=== PATIENT | female | born 1965 | race American Indian/Alaskan Native ===

== ENCOUNTER 2020-09-07 16:19 | Observation (INO) | payer OTHER ==
--- NOTE | 2020-09-07 19:13 | XRay Report ---
CHEST 2 VIEWS INDICATION / CLINICAL INFORMATION: sob. COMPARISON: None available. FINDINGS: SUPPORT DEVICES: None. HEART / MEDIASTINUM: No significant abnormality. LUNGS / PLEURA: No significant pulmonary or pleural abnormality. No pneumothorax. ADDITIONAL FINDINGS: No significant additional findings. IMPRESSION: 1. No acute findings. Signer Name: Maurilio Cardona MD Signed: 09/07/2020 7:09 PM Workstation Name: [id number]
[2020-09-07 19:33] LABS: Basophils % (Auto) 0.3 % (0.0-1.8); Eosinophils # (Auto) 0.1 K/mm3 (0.0-0.4); Eosinophils % (Auto) 0.8 % (0.0-4.3); Hematocrit 49.2 % (30.3-42.9); Hemoglobin 16.1 gm/dl (10.1-14.3); Lymphocytes # (Auto) 4.5 K/mm3 (1.2-5.4); Lymphocytes % (Auto) 40.1 % (13.4-35.0); Mean Corpuscular HGB Conc 33 % (30-34); Mean Corpuscular Volume 80 fl (79-97); Monocytes # (Auto) 0.7 K/mm3 (0.0-0.8); Monocytes % (Auto) 6.1 % (0.0-7.3); Platelet Count 167 K/mm3 (140-440); Red Blood Count 6.19 M/mm3 (3.65-5.03); Red Cell Distribution Width 14.1 % (13.2-15.2)
[2020-09-07 19:54] LABS: Alanine Aminotransferase 27 units/L (7-56); Albumin 4.1 g/dL (3.9-5); BUN/Creatinine Ratio 26; Blood Urea Nitrogen 29 mg/dL (7-17); Calcium 9.5 mg/dL (8.4-10.2); Hemolysis Index 26
--- NOTE | 2020-09-07 23:13 | Emergency Department Report ---
ED General Adult HPI - General Chief complaint: Chest Pain Stated complaint: SOB DIZZINESS Time Seen by Provider: 09/07/20 23:09 Source: patient Mode of arrival: Ambulatory Limitations: No Limitations - History of Present Illness Initial comments: 54-year-old female patient with history of diabetes, hypertension, and BMI >30 kg presents to the emergency department with complaints of fatigue and dyspnea on exertion starting 3 days ago. Patient states she has never experienced similar symptoms in the past. She states she is normally able to climb the 17 stairs to her home without difficulty, but for the last few days she is unable to climb more than 5 steps without becoming short of breath. States she became short of breath today walking from the bathroom to the kitchen, prompting her to come to the emergency department. No known history of coronary artery disease. States that she has not had a stress test performed in several years. No venous thromboembolism risk factors identified on history. Denies fever, chills, cough, chest pain, palpitations, syncope, lower extremity swelling. Denies all other complaints at this time. - Related Data Previous Rx's Medication Instructions Recorded Last Taken Type Albuterol Mdi (or & Nicu Only) 2 puff IH QID PRN #1 inhalation 05/16/16 Unknown Rx [ProAir HFA Inhaler] Valsartan/Hydrochlorothiazide 1 tab PO DAILY #30 tablet 05/16/16 Unknown Rx [Diovan Hct 320-12.5 mg] guaiFENesin/CODEINE [Robitussin AC] 5 ml PO Q6H PRN #100 ml 05/16/16 Unknown Rx metFORMIN [Glucophage] 500 mg PO BID #60 tablet 05/16/16 Unknown Rx Allergies Allergy/AdvReac Type Severity Reaction Status Date / Time No Known Allergies Allergy Unverified 05/16/16 16:38 ED Review of Systems ROS: Stated complaint: SOB DIZZINESS Other details as noted in HPI Other: GENERAL: Positive for fatigue. ENT: Negative for ear pain, difficulty hearing, sore throat, nasal congestion, epistaxis. CARDIOVASCULAR: Negative for chest pain, palpitations, lower extremity swelling. PULMONARY: Positive for dyspnea on exertion. GASTROINTESTINAL: Negative for abdominal pain, nausea, vomiting, diarrhea, constipation. MUSCULOSKELETAL: Negative for joint pain, joint swelling, myalgias, back pain, neck pain. NEUROLOGICAL: Negative for headache, seizure, syncope, paresthesias, weakness. INTEGUMENTARY: Negative for erythema, rash, diaphoresis, laceration, ecchymosis. HEMATOLOGICAL: Negative for hemoptysis, hematemesis, hematochezia, hematuria. PSYCHIATRIC: Negative for hallucinations, suicidal ideation, homicidal ideation, anxiety, depression. ED Past Medical Hx - Past Medical History Previous Medical History?: Yes Hx Hypertension: Yes Hx Diabetes: Yes Hx Arthritis: Yes - Surgical History Additional Surgical History: right knee arthroscopy - Social History Smoking Status: Never Smoker Substance Use Type: Alcohol, Prescribed - Medications Home Medications: Home Medications Medication Instructions Recorded Confirmed Last Taken Type Albuterol Mdi (or & Nicu Only) 2 puff IH QID PRN #1 inhalation 05/16/16 Unknown Rx [ProAir HFA Inhaler] Valsartan/Hydrochlorothiazide 1 tab PO DAILY #30 tablet 05/16/16 Unknown Rx [Diovan Hct 320-12.5 mg] guaiFENesin/CODEINE [Robitussin AC] 5 ml PO Q6H PRN #100 ml 05/16/16 Unknown Rx metFORMIN [Glucophage] 500 mg PO BID #60 tablet 05/16/16 Unknown Rx ED Physical Exam - General Limitations: No Limitations - Other Other exam information: General: Awake and alert. No acute distress. BMI >30. Head: Atraumatic, normocephalic. Eyes: EOMI. Pupils are equal and round. Normal sclera and conjunctiva. ENT: Oral mucosa is moist. Normal pharyngeal exam. Neck: Supple. No lymphadenopathy. Pulmonary: No respiratory distress. Clear to auscultation bilaterally. Cardiac: Regular rate and rhythm. Pulses are palpable and equal bilaterally. No lower extremity cyanosis. Superficial thrombophlebitis noted to posterior right calf. Skin: Warm and dry. No rashes. Abdomen: Soft, non-tender, non-protuberant. No guarding, rigidity, or rebound. Bowel sounds are normal. No organomegaly or masses noted. Back: Normal alignment. No CVA tenderness. Extremities: Symmetrical. Full range of motion intact. Neurological: Alert and oriented, appropriately interactive, no focal deficits. Psych: Cooperative. Appropriate mood and affect. Speech is evenly metered. Thoughts are logically construed. ED Course Vital Signs 09/07/20 09/07/20 18:00 22:31 Temperature 98.1 F Pulse Rate 98 H 92 H Respiratory 18 18 Rate Blood Pressure 117/65 136/94 [Right] O2 Sat by Pulse 97 97 Oximetry ED Medical Decision Making - Lab Data Result diagrams: 09/07/20 19:07 09/07/20 19:07 - EKG Data 09/07/20 23:12 EKG shows normal sinus rhythm with a ventricular rate of 90 bpm. Normal [place] interval. No ST segment changes. EKG over read by attending emergency naomi villarreal, who agrees with this interpretation. - Medical Decision Making Differential diagnosis including but not limited to: acute coronary syndrome, cardiac arrhythmia, pericarditis, pericardial effusion/cardiac tamponade, pneumonia, pleural effusion, congestive heart failure, myocarditis, cardiomyopathy, valvular disease On re-evaluation, the patient is well-appearing, vital signs are stable, and pain is controlled. No hypoxia, no respiratory distress. Labs show mild hyponatremia; given IV fluids. Chest x-ray is negative. EKG without overt evidence of STEMI, Brugada syndrome, delta wave, significantly prolonged QT, or life-threatening arrhythmia. Supervising physician is in agreement with EKG interpretation. Low clinical suspicion for other life-threatening intrathoracic pathology including but not limited to: pulmonary embolism, aortic aneurysm/dissection, pneumothorax, or pneumonia. The patient has a statistically significant risk of experiencing a major cardiac event within the next six weeks according to HEART score guidelines. It has been explained to the patient that while the HEART score/pathway are adjunct decision-making tools and are not designed to replace clinical judgment, further testing is indicated and cardiology consultation/hospital admission are strongly recommended. Patient expressed understanding and was given the opportu nity to ask questions, all of which were satisfactorily answered prior to admission. Case discussed with hospitalist, who agrees to admit. Critical care attestation.: If time is entered above; I have spent that time in minutes in the direct care of this critically ill patient, excluding procedure time. ED Disposition Clinical Impression: Dyspnea on exertion, Hyponatremia Disposition: TO HOME OR SELFCARE Is pt being admited?: Yes Does the pt Need Aspirin: Yes Condition: Stable Time of Disposition: 00:44 HEART Score - HEART Score History: Moderately suspicious EKG: Non-specific Age: 45-65 Risk factors: > 3 risk factors or hx of atherosclerotic disease Troponin: Troponin T < 0.010 ng/mL (0.00-0.029) 09/07/20 19:07 Troponin: < normal limit HEART Score: 5 - Critical Actions Critical Actions: 4-6 pts:12-16.6% risk of adverse cardiac event. Should be admitted
[2020-09-07] MEDS ORDERED: ASPIRIN 81 MG TAB CHEW PO ONE (23:46)
[2020-09-07] MEDS ORDERED: SODIUM CHLORIDE 0.9% 1000 ML 1,000 ML IV ONE (23:46)
[2020-09-07] MEDS ORDERED: ONDANSETRON 4 MG/2 ML INJ IV ONE (23:53)
[2020-09-08] MEDS ORDERED: ONDANSETRON 4 MG/2 ML INJ IV PRN (00:56)
[2020-09-08] MEDS ORDERED: ACETAMINOPHEN 325 MG TAB PO PRN ×2 (00:56)
[2020-09-08] MEDS ORDERED: DEXTROSE 50% IN WATER (25GM) 50 ML SYRINGE IV PRN (00:56)
[2020-09-08] MEDS ORDERED: MAGNESIUM HYDROXIDE (MOM) ORAL LIQD UDC PO PRN (00:56)
[2020-09-08] MEDS ORDERED: traMADol 50 MG TAB PO PRN (00:56)
[2020-09-08] MEDS ORDERED: NITROGLYCERIN 0.4 MG TAB SUBL SL PRN (00:56)
[2020-09-08] MEDS ORDERED: MORPHINE 4 MG/1 ML INJ IV PRN (00:56)
--- NOTE | 2020-09-08 01:11 | History and Physical Report ---
History of Present Illness Date of examination: 09/08/20 Date of admission: 09/08/20 00:10 Chief complaint: Fatigue Dyspnea on exertion History of present illness: 54-year-old -[place] African female with known history of hypertension, diabetes mellitus, obesity with a BMI of 40.2 presenting in the emergency room today complaining of dyspnea on exertion and fatigue which has been ongoing for about 3 days. Patient indicates that he has not been able to climb more than a few steps of stairs without encountering major difficulty. She becomes short of breath upon minimal exertion. She denies any chest pain, no fever or chills, no headache or dizziness, no diaphoresis, no syncope, no nausea vomiting, no abdominal pain, no hematuria or dysuria. Patient denies any sick contacts and no recent travel. Denies any contact with anyone with COVID-19. Work-up in the emergency room today including chest x-ray, EKG and troponin levels were unremarkable. BNP was within normal limits. Patient has been admitted for chest pain rule out. Past History Past Medical History: arthritis, diabetes, hypertension, other (Asthma) Past Surgical History: Other (Right knee arthroscopy) Social history: alcohol abuse (Occasional alcohol intake) Family history: hypertension (Hypertension in mother, chronic kidney disease in mother) Medications and Allergies Allergies Allergy/AdvReac Type Severity Reaction Status Date / Time No Known Allergies Allergy Verified 09/08/20 01:10 Home Medications Medication Instructions Recorded Confirmed Last Taken Type Empagliflozin [Jardiance] 25 mg PO QDAY 09/08/20 09/08/20 Unknown History Exenatide Microspheres [Bydureon] 2 mg SQ 1XW 09/08/20 09/08/20 09/06/20 History Olmesartan/Amlodipin/Hcthiazid 1 each PO DAILY 09/08/20 09/08/20 Unknown History [Tribenzor 40-10-25 mg Tablet] Rosuvastatin Calcium [Crestor] 40 mg PO QHS 09/08/20 09/08/20 Unknown History metFORMIN [Glucophage] 1,000 mg PO BID 09/08/20 09/08/20 Unknown History Active Meds: Active Medications Acetaminophen (Acetaminophen 325 Mg Tab) 650 mg PO Q4H PRN PRN Reason: Pain MILD(1-3)/Fever >100.5/JACK Acetaminophen (Acetaminophen 325 Mg Tab) 650 mg PO Q6H PRN PRN Reason: Pain, Mild (1-3) Aspirin (Aspirin Ec 325 Mg Tab) 325 mg PO QDAY LINDA Dextrose (Dextrose 50% In Water (25gm) 50 Ml Syringe) 50 ml IV Q30MIN PRN; P rotocol PRN Reason: Hypoglycemia Dextrose (Dextrose 50% In Water (25gm) 50 Ml Syringe) 50 ml IV Q30MIN PRN; Protocol PRN Reason: Hypoglycemia Insulin Human Lispro (Insulin Lispro 100 Unit/Ml) 0 unit SUB-Q ACHS LINDA; Protocol Magnesium Hydroxide (Magnesium Hydroxide (Mom) Oral Liqd Udc) 30 ml PO Q4H PRN PRN Reason: Constipation Morphine Sulfate (Morphine 4 Mg/1 Ml Inj) 2 mg IV Q5MIN PRN PRN Reason: Chest Pain Nitroglycerin (Nitroglycerin 0.4 Mg Tab Subl) 0.4 mg SL Q5M PRN PRN Reason: Chest Pain Ondansetron HCl (Ondansetron 4 Mg/2 Ml Inj) 4 mg IV Q8H PRN PRN Reason: Nausea And Vomiting Sodium Chloride (Sodium Chloride 0.9% 10 Ml Flush Syringe) 10 ml IV BID LINDA Sodium Chloride (Sodium Chloride 0.9% 10 Ml Flush Syringe) 10 ml IV PRN PRN PRN Reason: LINE FLUSH Sodium Chloride (Sodium Chloride 0.9% 10 Ml Flush Syringe) 10 ml IV PRN PRN PRN Reason: LINE FLUSH Tramadol HCl (Tramadol 50 Mg Tab) 50 mg PO Q6H PRN PRN Reason: Pain, Moderate (4-6) Review of Systems Constitutional: fatigue, no fever, no chills Ears, nose, mouth and throat: no nasal congestion, no sore throat Cardiovascular: no chest pain, no palpitations Respiratory: dyspnea on exertion, no cough, no wheezing Gastrointestinal: no abdominal pain, no nausea, no vomiting, no diarrhea Genitourinary Female: no flank pain, no dysuria, no hematuria Musculoskeletal: no neck pain, no low back pain Integumentary: no rash, no pruritis Neurological: no headaches, no confusion Psychiatric: no anxiety, no depression Exam - Constitutional Vitals: Temp Pulse Resp BP Pulse Ox 98.1 F 92 H 18 136/94 97 09/07/20 18:00 09/07/20 22:31 09/07/20 22:31 09/07/20 22:31 09/07/20 22:31 General appearance: Present: no acute distress, well-nourished, obese - EENT Eyes: Present: PERRL, EOM intact. Absent: scleral icterus ENT: hearing intact, clear oral mucosa, dentition normal - Neck Neck: Present: supple, normal ROM - Respiratory Respiratory effort: normal Respiratory: bilateral: CTA - Cardiovascular Rhythm: regular Heart Sounds: Present: S1 & S2. Absent: gallop, systolic murmur, diastolic murmur, rub, click - Extremities Extremities: no ischemia, pulses intact, pulses symmetrical, No edema, normal temperature, normal color, Full ROM Peripheral Pulses: within normal limits - Abdominal General gastrointestinal: Present: soft, non-tender, non-distended, normal bowel sounds. Absent: mass - Integumentary Integumentary: Present: clear, warm, dry. Absent: rash - Musculoskeletal Musculoskeletal: strength equal bilaterally - Psychiatric Psychiatric: appropriate mood/affect, intact judgment & insight, memory intact, cooperative - Neurologic Neurologic: CNII-XII intact, no focal deficits, moves all extremities HEART Score - HEART Score History: Slightly suspicious EKG: Non-specific Age: 45-65 Risk factors: > 3 risk factors or hx of atherosclerotic disease Troponin: Troponin T < 0.010 ng/mL (0.00-0.029) 09/07/20 19:07 Troponin: < normal limit HEART Score: 4 - Critical Actions Critical Actions: 4-6 pts:12-16.6% risk of adverse cardiac event. Should be admitted Results - Labs CBC & Chem 7: 09/07/20 19:07 09/07/20 19:07 Labs: Abnormal lab results 09/07/20 09/07/20 Range/Units 19:07 19:07 WBC 11.3 H (4.5-11.0) K/mm3 RBC 6.19 H (3.65-5.03) M/mm3 Hgb 16.1 H (10.1-14.3) gm/dl Hct 49.2 H (30.3-42.9) % MCH 26 L (28-32) pg Lymph % (Auto) 40.1 H (13.4-35.0) % Sodium 131 L (137-145) mmol/L Chloride 94.8 L (98-107) mmol/L BUN 29 H (7-17) mg/dL Glucose 188 H (65-100) mg/dL Alkaline Phosphatase 130 H (35-129) units/L Total Protein 8.3 H (6.3-8.2) g/dL Assessment and Plan - Patient Problems (1) Dyspnea on exertion Current Visit: Yes Status: Acute Plan to address problem: Etiology unclear. Patient will be ruled out for acute coronary syndrome. We will check serial cardiac enzymes. Patient will be started on aspirin, sublingual nitroglycerin and IV morphine as needed for chest pain. We will schedule patient for stress test and echocardiogram. Consult also placed to cardiology for evaluation. (2) Hyponatremia Current Visit: Yes Status: Acute Plan to address problem: Possibly secondary to diuretic intake . we will monitor chemistry. (3) Diabetes mellitus Current Visit: Yes Status: Acute Plan to address problem: We will monitor Accu-Cheks. (4) Hypertension Current Visit: Yes Status: Acute Plan to address problem: We will resume routine home medications and monitor vital signs closely. (5) Obesity Current Visit: Yes Status: Acute Plan to address problem: Patient has a BMI of 40.2. Lifestyle modification encouraged. We will place dietary consult. (6) DVT prophylaxis Current Visit: Yes Status: Acute Plan to address problem: Cannot placed on subcutaneous heparin. (7) Full code status Current Visit: Yes Status: Acute Plan to address problem: Patient is full code.
[2020-09-08 06:38] LABS: Eosinophils # (Auto) 0.1 K/mm3 (0.0-0.4); Eosinophils % (Auto) 0.6 % (0.0-4.3); Monocytes # (Auto) 0.6 K/mm3 (0.0-0.8); Monocytes % (Auto) 6.8 % (0.0-7.3)
[2020-09-08 06:41] LABS: Hematocrit 44.9 % (30.3-42.9); Hemoglobin 14.6 gm/dl (10.1-14.3); Mean Corpuscular HGB Conc 33 % (30-34); Mean Corpuscular Volume 79 fl (79-97); Red Blood Count 5.67 M/mm3 (3.65-5.03)
[2020-09-08 06:42] LABS: Basophils % (Auto) 0.4 % (0.0-1.8); Lymphocytes # (Auto) 3.7 K/mm3 (1.2-5.4); Lymphocytes % (Auto) 44.7 % (13.4-35.0); Platelet Count 148 K/mm3 (140-440); Red Cell Distribution Width 13.8 % (13.2-15.2)
[2020-09-08 06:45] LABS: BUN/Creatinine Ratio 23; Blood Urea Nitrogen 21 mg/dL (7-17); Calcium 8.9 mg/dL (8.4-10.2); Hemolysis Index 2
[2020-09-08] MEDS: HEPARIN 5,000 UNIT/1 ML VIAL SUB-Q SCH ×3 (07:31→22:02)
[2020-09-08] MEDS: INSULIN LISPRO 100 UNIT/ML SUB-Q SCH ×4 (08:36→22:00)
[2020-09-08] MEDS ORDERED: REGADENOSON 0.4 MG/5 ML INJ IV ONE ×2 (09:17→09:35)
[2020-09-08] MEDS ORDERED: AMLODIPIN PO SCH (10:00)
[2020-09-08] MEDS ORDERED: [UNRECOGNIZED DRUG - OTHER] PO SCH (10:00)
[2020-09-08] MEDS: hydroCHLOROthiazide 25 MG TAB PO SCH (10:00)
[2020-09-08] MEDS ORDERED: LOSARTAN 50 MG TAB PO SCH (10:00)
[2020-09-08] MEDS ORDERED: OLMESARTAN PO SCH (10:00)
[2020-09-08] MEDS: amLODIPine 10 MG TAB PO SCH (10:00)
[2020-09-08] MEDS ORDERED: HCTHIAZID PO SCH (10:00)
--- NOTE | 2020-09-08 14:02 | Consultation ---
History of Present Illness Consult date: 09/08/20 Consult reason: chest pain History of present illness: This is a 54-year old woman with a history of hypertension and diabetes. No prior cardiac history. She presented to the emergency department with progressive shortness of breath and fatigue. Patient denies chest pain and palpitations. There is no lower extremity edema. Chest x-ray showed no acute findings. 12-lead ECG is benign, normal sinus rhythm. She was admitted by the hospitalist and ordered to undergo rule out MO protocol with a stress thallium test and echocardiogram today. Cardiology consultation has been requested. Past History Past Medical History: arthritis, diabetes, hypertension, other (Asthma) Past Surgical History: Other (Right knee arthroscopy) Social history: alcohol abuse (Occasional alcohol intake) Family history: hypertension (Hypertension in mother, chronic kidney disease in mother) Medications and Allergies Allergies Allergy/AdvReac Type Severity Reaction Status Date / Time No Known Allergies Allergy Verified 09/08/20 01:10 Home Medications Medication Instructions Recorded Confirmed Last Taken Type Empagliflozin [Jardiance] 25 mg PO QDAY 09/08/20 09/08/20 Unknown History Exenatide Microspheres [Bydureon] 2 mg SQ 1XW 09/08/20 09/08/20 09/06/20 History Olmesartan/Amlodipin/Hcthiazid 1 each PO DAILY 09/08/20 09/08/20 Unknown History [Tribenzor 40-10-25 mg Tablet] Rosuvastatin Calcium [Crestor] 40 mg PO QHS 09/08/20 09/08/20 Unknown History metFORMIN [Glucophage] 1,000 mg PO BID 09/08/20 09/08/20 Unknown History Active Meds: Active Medications Acetaminophen (Acetaminophen 325 Mg Tab) 650 mg PO Q4H PRN PRN Reason: Pain MILD(1-3)/Fever >100.5/JACK Amlodipine Besylate (Amlodipine 10 Mg Tab) 10 mg PO QDAY LINDA Aspirin (Aspirin Ec 325 Mg Tab) 325 mg PO QDAY LINDA Atorvastatin Calcium (Atorvastatin 40 Mg Tab) 80 mg PO QHS [facility] Dextrose (Dextrose 50% In Water (25gm) 50 Ml Syringe) 50 ml IV Q30MIN PRN; Protocol PRN Reason: Hypoglycemia Heparin Sodium (Porcine) (Heparin 5,000 Unit/1 Ml Vial) 5,000 unit SUB-Q Q8HR LINDA Last Admin: 09/08/20 13:47 Dose: 5,000 unit Documented by: Hydrochlorothiazide (Hydrochlorothiazide 25 Mg Tab) 25 mg PO QDAY [facility] Insulin Human Lispro (Insulin Lispro 100 Unit/Ml) 0 unit SUB-Q ACHS [facility]; Protocol Last Admin: 09/08/20 13:46 Dose: 2 unit Documented by: Losartan Potassium (Losartan 50 Mg Tab) 100 mg PO QDAY [facility] Magnesium Hydroxide (Magnesium Hydroxide (Mom) Oral Liqd Udc) 30 ml PO Q4H PRN PRN Reason: Constipation Morphine Sulfate (Morphine 4 Mg/1 Ml Inj) 2 mg IV Q5MIN PRN PRN Reason: Chest Pain Nitroglycerin (Nitroglycerin 0.4 Mg Tab Subl) 0.4 mg SL Q5M PRN PRN Reason: Chest Pain Ondansetron HCl (Ondansetron 4 Mg/2 Ml Inj) 4 mg IV Q8H PRN PRN Reason: Nausea And Vomiting Sodium Chloride (Sodium Chloride 0.9% 10 Ml Flush Syringe) 10 ml IV BID [facility] Last Admin: 09/08/20 13:47 Dose: 10 ml Documented by: Sodium Chloride (Sodium Chloride 0.9% 10 Ml Flush Syringe) 10 ml IV PRN PRN PRN Reason: LINE FLUSH Tramadol HCl (Tramadol 50 Mg Tab) 50 mg PO Q6H PRN PRN Reason: Pain, Moderate (4-6) Review of Systems Cardiovascular: dyspnea on exertion, no chest pain, no palpitations, no edema, no syncope Physical Examination Vital Signs Temp Pulse Resp BP Pulse Ox 98.1 F 98 H 18 117/65 97 09/07/20 18:00 09/07/20 18:00 09/07/20 18:00 09/07/20 18:00 09/07/20 18:00 General appearance: no acute distress, obese HEENT: Positive: PERRL Neck: Positive: trachea midline Cardiac: Positive: Reg Rate and Rhythm Lungs: Positive: Normal Breath Sounds Neuro: Positive: Grossly Intact Extremities: Absent: edema Results 09/08/20 05:49 09/08/20 05:49 Cardiac Enzymes 09/07/20 Range/Units 19:07 AST 18 (5-40) units/L CBC 09/07/20 09/08/20 Range/Units 19:07 05:49 WBC 11.3 H 8.3 (4.5-11.0) K/mm3 RBC 6.19 H 5.67 H (3.65-5.03) M/mm3 Hgb 16.1 H 14.6 H (10.1-14.3) gm/dl Hct 49.2 H 44.9 H (30.3-42.9) % Plt Count 167 148 (140-440) K/mm3 Lymph # (Auto) 4.5 3.7 (1.2-5.4) K/mm3 Sharkey # (Auto) 0.7 0.6 (0.0-0.8) K/mm3 Eos # (Auto) 0.1 0.1 (0.0-0.4) K/mm3 Baso # (Auto) 0.0 0.0 (0.0-0.1) K/mm3 Comprehensive Metabolic Panel 09/07/20 09/08/20 Range/Units 19:07 05:49 Sodium 131 L 136 L (137-145) mmol/L Potassium 4.6 4.5 (3.6-5.0) mmol/L Chloride 94.8 L 98.1 (98-107) mmol/L Carbon Dioxide 24 28 (22-30) mmol/L BUN 29 H 21 H (7-17) mg/dL Creatinine 1.1 0.9 (0.6-1.2) mg/dL Glucose 188 H 133 H (65-100) mg/dL Calcium 9.5 8.9 (8.4-10.2) mg/dL AST 18 (5-40) units/L ALT 27 (7-56) units/L Alkaline Phosphatase 130 H (35-129) units/L Total Protein 8.3 H (6.3-8.2) g/dL Albumin 4.1 (3.9-5) g/dL Assessment and Plan - Patient Problems (1) Dyspnea on exertion Current Visit: Yes Status: Acute Plan to address problem: She completed an echocardiogram and Lexiscan thallium stress test today. Results are pending.
--- NOTE | 2020-09-08 17:20 | Discharge Summary ---
Providers - Providers Date of Admission: 09/07/20 23:54 Date of discharge: 09/09/20 Attending physician: SANTA LANGFORD 09/08/20 Consult to Cardiac Rehabilitation [CONS] Routine Reason For Exam: Phase I 09/08/20 00:57 Consult to Cardiology [CONS] Routine Consulting Provider: LIDIA NELSON Reason For Exam: Chest Pain Consult to Dietitian/Nutrition [CONS] Routine Physician Instructions: Reason For Exam: Reason for Consult: Diet education Primary care physician: MARIANELA CARPIO Hospitalization Condition: Stable Hospital course: This is a 54-year old woman with a history of hypertension and diabetes type 2, HLD, without any prior cardiac history presented to the emergency department with progressive shortness of breath and fatigue. Patient denied any chest pain and palpitations. There is no lower extremity edema. Chest x-ray showed no acute findings. 12-lead ECG is benign, normal sinus rhythm. Patient was admitted for further evaluation and management and underwent myocardial stress test, 2D echocardiogram and findings were essentially normal. Patient noted to be resting on room air without any difficulty. Patient was advised dietary modification and exercise regimen as tolerated as outpatient. She also advised to have outpatient sleep study for possible sleep apnea and to be compliant with medication for her diabetes. She was discharged home in stable condition with outpatient follow-up. Discharge plan and management was thoroughly discussed with the patient and she verbalized understanding. Disposition: DC-01 TO HOME OR SELFCARE Final Discharge Diagnosis (Prints w/discharge instructions): Dyspnea on exertion, could be due to obesity hypoventilation syndrome. Morbid obesity. Diabetes mellitus type 2, A1c 11.7. Hypertension. Noncompliance with medication and outpatient follow-up Time spent for discharge: 34 minutes Core Measure Documentation - Palliative Care Palliative Care/ Comfort Measures: Not Applicable - Core Measures Any of the following diagnoses?: none Exam - Physical Exam Narrative exam: GENERAL: well-developed morbidly obese -[place] female lying on bed appeared to be in no discomfort. HEENT: Normocephalic. Atraumatic. No conjunctival congestion or icterus. Patient has moist mucous membranes. NECK: Supple. Trachea midline. CHEST/LUNGS: Clear to auscultated bilaterally, breathing nonlabored. No wheezes crackles or rhonchi. HEART/CARDIOVASCULAR: Regular in rate and rhythm. S1 and S2 positive. ABDOMEN: Abdomen is soft, nontender. Patient has normal bowel sounds. SKIN: There is no rash. Warm and dry. NEURO: No focal motor deficit. Follows command. MUSCULOSKELETAL: No joint effusion or tenderness. EXTRIMITY: No edema, no cyanosis or clubbing. PSYCH: Cooperative. - Constitutional Vitals: Temp Pulse Resp BP Pulse Ox 98.5 F 99 H 18 114/54 96 09/08/20 15:38 09/08/20 15:38 09/08/20 15:38 09/08/20 15:38 09/08/20 15:38 Plan Activity: advance as tolerated Weight Bearing Status: Weight Bear as Tolerated Diet: low fat, low salt, diabetic Special Instructions: record daily BP diary, record blood sugar diary Follow up with: MARIANELA CARPIO MD [Primary Care Provider] - 3-5 Days WASHINGTON BARRAGAN MD [Staff Physician] - 7 Days Forms: Work/School Release Form Prescriptions: Rosuvastatin Calcium [Crestor] 40 mg PO QHS #30 amLODIPine 10 mg PO QDAY #30 tablet metFORMIN [Glucophage] 1,000 mg PO BID #60
--- NOTE | 2020-09-08 17:56 | Event Note ---
Date: 09/08/20 The patient's Lexiscan thallium study was completed today, but the scintigraphic images are not available for my review, does not appear to have been optimally processed by the nuclear cardiology technical outfit. Only raw images seen on the review scanner. We will reach out to the technical staff in the morning to provide the study images for further review.
--- NOTE | 2020-09-08 19:01 | Event Note ---
Date: 09/08/20 Myocardial perfusion images reviewed, showed normal perfusion, with left ventricular ejection fraction greater than 70%. Normal myocardial perfusion study. Patient is stable for cardiac discharge.
[2020-09-08] MEDS ORDERED: NON-FORMULARY EACH (Rosuvastatin Calcium [Crestor] 40 MG Tablet) PO SCH (22:00)
[2020-09-09 06:07] LABS: Basophils % (Auto) 0.3 % (0.0-1.8); Eosinophils # (Auto) 0.1 K/mm3 (0.0-0.4); Eosinophils % (Auto) 0.7 % (0.0-4.3); Hematocrit 43.5 % (30.3-42.9); Hemoglobin 13.9 gm/dl (10.1-14.3); Lymphocytes # (Auto) 4.3 K/mm3 (1.2-5.4); Lymphocytes % (Auto) 54.9 % (13.4-35.0); Mean Corpuscular HGB Conc 32 % (30-34); Mean Corpuscular Volume 79 fl (79-97); Monocytes # (Auto) 0.6 K/mm3 (0.0-0.8); Monocytes % (Auto) 7.2 % (0.0-7.3); Platelet Count 151 K/mm3 (140-440); Red Blood Count 5.49 M/mm3 (3.65-5.03); Red Cell Distribution Width 13.7 % (13.2-15.2)
[2020-09-09] MEDS: HEPARIN 5,000 UNIT/1 ML VIAL SUB-Q SCH (06:12)
[2020-09-09 06:18] LABS: INR 0.99 (0.87-1.13)
[2020-09-09 06:34] LABS: Blood Urea Nitrogen 18 mg/dL (7-17); Calcium 8.4 mg/dL (8.4-10.2); Hemolysis Index 9
[2020-09-09 06:35] LABS: BUN/Creatinine Ratio 26
[2020-09-09 09:21] VITALS: BP 131/63
[2020-09-09] MEDS: INSULIN LISPRO 100 UNIT/ML SUB-Q SCH ×2 (09:24→12:18)
[2020-09-09] MEDS: amLODIPine 10 MG TAB PO SCH (09:25)
[2020-09-09] MEDS: hydroCHLOROthiazide 25 MG TAB PO SCH (09:25)
--- NOTE | 2020-09-09 09:28 | Progress Note ---
Assessment and Plan (1) Dyspnea on exertion Current Visit: Yes Status: Acute Plan to address problem: Etiology unclear. Patient will be ruled out for acute coronary syndrome. check serial cardiac enzymes. started on aspirin, sublingual nitroglycerin and IV morphine as needed for chest pain. waiting on stress test and echocardiogram result. cardiology consulted, check d-dimer (2) Hyponatremia Current Visit: Yes Status: Acute Plan to address problem: Possibly secondary to diuretic intake . we will monitor chemistry. (3) Diabetes mellitus Current Visit: Yes Status: Acute Plan to address problem: We will monitor Accu-Cheks. order a1c (4) Hypertension Current Visit: Yes Status: Acute Plan to address problem: We will resume routine home medications as needed and monitor vital signs closely. BP normal now (5) Obesity Current Visit: Yes Status: Acute Plan to address problem: Patient has a BMI of 40.2. Lifestyle modification encouraged. placed dietary consult. (6) DVT prophylaxis Current Visit: Yes Status: Acute Plan to address problem: Cannot placed on subcutaneous heparin. (7) Full code status Current Visit: Yes Status: Acute Plan to address problem: Patient is full code. Daily clinical course: 09/08/20: Cardiology following, serial troponin has been normal. Patient had 2D echocardiogram and stress test, waiting on results. We will also check for D- dimer and A1c. Patient will be discharged home if 2D echocardiogram and stress test is normal Subjective Date of service: 09/09/20 Interval history: Patient seen and examined. Medical records and medication list reviewed. No acute event overnight noted by the RN. Patient denies any chest pain but c/o difficulty breathing on exertion. Patient is tolerating diet. Discussed plan of care at bedside with patient. Objective - Exam Narrative Exam: GENERAL: well-developed morbidly obese -[place] female lying on bed appeared to be in no discomfort. HEENT: Normocephalic. Atraumatic. No conjunctival congestion or icterus. Patient has moist mucous membranes. NECK: Supple. Trachea midline. CHEST/LUNGS: Clear to auscultated bilaterally, breathing nonlabored. No wheezes crackles or rhonchi. HEART/CARDIOVASCULAR: Regular in rate and rhythm. S1 and S2 positive. ABDOMEN: Abdomen is soft, nontender. Patient has normal bowel sounds. SKIN: There is no rash. Warm and dry. NEURO: No focal motor deficit. Follows command. MUSCULOSKELETAL: No joint effusion or tenderness. EXTRIMITY: No edema, no cyanosis or clubbing. PSYCH: Cooperative. - Constitutional Vitals: Vital Signs - 12hr 09/08/20 09/09/20 09/09/20 23:16 02:00 03:41 Temperature 98.6 F 98.4 F Pulse Rate 107 H 107 H 80 Respiratory 16 12 Rate Blood Pressure 152/88 114/58 O2 Sat by Pulse 96 96 Oximetry 09/09/20 07:50 Temperature 98.5 F Pulse Rate 83 Respiratory 18 Rate Blood Pressure 131/63 O2 Sat by Pulse 100 Oximetry - Labs CBC & Chem 7: 09/09/20 04:40 09/09/20 04:40 Labs: Abnormal lab results 09/08/20 09/08/20 09/08/20 Range/Units 07:50 12:31 16:47 RBC (3.65-5.03) M/mm3 Hct (30.3-42.9) % MCH (28-32) pg Lymph % (Auto) (13.4-35.0) % Seg Neutrophils % (40.0-70.0) % Sodium (137-145) mmol/L BUN (7-17) mg/dL Glucose (65-100) mg/dL POC Glucose 129 H 179 H 145 H (70-105) mg/dL 09/08/20 09/09/20 09/09/20 Range/Units 20:31 04:40 04:40 RBC 5.49 H (3.65-5.03) M/mm3 Hct 43.5 H (30.3-42.9) % MCH 25 L (28-32) pg Lymph % (Auto) 54.9 H (13.4-35.0) % Seg Neutrophils % 36.9 L (40.0-70.0) % Sodium 135 L (137-145) mmol/L BUN 18 H (7-17) mg/dL Glucose 156 H (65-100) mg/dL POC Glucose 335 H (70-105) mg/dL HEART Score - HEART Score EKG: Non-specific Age: 45-65 Risk factors: > 3 risk factors or hx of atherosclerotic disease Troponin: Troponin T < 0.010 ng/mL (0.00-0.029) 09/08/20 05:49 Troponin: < normal limit - Critical Actions Critical Actions: 4-6 pts:12-16.6% risk of adverse cardiac event. Should be admitted
[2020-09-09] MEDS ORDERED: ASPIRIN EC 325 MG TAB PO SCH (10:00)
--- NOTE | 2020-09-09 11:04 | Progress Note ---
Assessment and Plan - Patient Problems (1) Dyspnea on exertion Current Visit: Yes Status: Acute Plan to address problem: Lexiscan thallium stress test showed normal perfusion scan. Echocardiogram showed normal left ventricular ejection fraction 65%. No further cardiac workup indicated. Patient is stable for cardiac allen, for discharge. Subjective Date of service: 09/09/20 Interval history: No interval cardiac changes. Objective Vital Signs Temp Pulse Resp BP Pulse Ox 09/09/20 09:25 83 131/63 09/09/20 07:50 98.5 F 83 18 131/63 100 09/09/20 03:41 98.4 F 80 12 114/58 96 09/09/20 02:00 107 H 09/08/20 23:16 98.6 F 107 H 16 152/88 96 09/08/20 19:44 98.6 F 117 H 14 134/83 94 09/08/20 18:00 77 09/08/20 15:38 98.5 F 99 H 18 114/54 96 09/08/20 12:35 98.4 F 98 H 18 99/59 98 - Physical Examination HEENT: Positive: PERRL Neck: Positive: trachea midline Neuro: Positive: Grossly Intact Extremities: Absent: edema - Labs and Meds Coagulation 09/09/20 Range/Units 04:40 PT 12.9 (12.2-14.9) Sec. INR 0.99 (0.87-1.13) CBC 09/09/20 Range/Units 04:40 WBC 7.9 (4.5-11.0) K/mm3 RBC 5.49 H (3.65-5.03) M/mm3 Hgb 13.9 (10.1-14.3) gm/dl Hct 43.5 H (30.3-42.9) % Plt Count 151 (140-440) K/mm3 Lymph # (Auto) 4.3 (1.2-5.4) K/mm3 [place] # (Auto) 0.6 (0.0-0.8) K/mm3 Eos # (Auto) 0.1 (0.0-0.4) K/mm3 Baso # (Auto) 0.0 (0.0-0.1) K/mm3 Comprehensive Metabolic Panel 09/09/20 Range/Units 04:40 Sodium 135 L (137-145) mmol/L Potassium 3.9 (3.6-5.0) mmol/L Chloride 98.6 (98-107) mmol/L Carbon Dioxide 25 (22-30) mmol/L BUN 18 H (7-17) mg/dL Creatinine 0.7 (0.6-1.2) mg/dL Glucose 156 H (65-100) mg/dL Calcium 8.4 (8.4-10.2) mg/dL
--- NOTE | 2020-09-10 10:36 | Electrocardiograph Report ---
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
--- NOTE | 2020-09-10 10:41 | Electrocardiograph Report ---
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
--- NOTE | 2020-09-10 10:43 | Electrocardiograph Report ---
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
== END 2020-09-09 15:30 | disposition home or self-care (01) ==
LOC: ED 16:19 → 4A 23:54
PROVIDERS: ADMIT Internal Medicine Geriatric Medicine; ATTEND Internal Medicine
DX: R06.00 Dyspnea, unspecified (principal); E87.1 Hypo-osmolality and hyponatremia; I10 Essential (primary) hypertension; E11.9 Type 2 diabetes mellitus without complications; E66.9 Obesity, unspecified; M19.90 Unspecified osteoarthritis, unspecified site; J45.909 Unspecified asthma, uncomplicated; Z68.41 Body mass index [BMI] 40.0-44.9, adult; Z98.890 Other specified postprocedural states; Z79.82 Long term (current) use of aspirin; Z79.4 Long term (current) use of insulin
CPT/HCPCS: 36415; 71046; 78452; 80048; 80053; 82962; 83036; 83735; 83880; 84484; 85025; 85379; 85610; 93005; 93017; 93306; 96361; 96372; 96374; 97161; 99285; A9270; A9502; G0378; J1644; J2405; J2785; J7030; J1815

== ENCOUNTER 2021-05-09 00:26 | Emergency (ER) | payer OTHER ==
[2021-05-09 02:15] VITALS: BP 146/78
--- NOTE | 2021-05-09 06:26 | XRay Report ---
CHEST 1 VIEW 05/09/2021 6:06 AM INDICATION / CLINICAL INFORMATION: chest pain. COMPARISON: 09/07/2020 FINDINGS: SUPPORT DEVICES: None. HEART / MEDIASTINUM: No significant abnormality. LUNGS / PLEURA: No significant pulmonary or pleural abnormality. No pneumothorax. ADDITIONAL FINDINGS: No significant additional findings. IMPRESSION: 1. No acute findings. Signer Name: Josr Gaviria DO Signed: 05/09/2021 6:21 AM Workstation Name: [id number]
[2021-05-09] MEDS ORDERED: MORPHINE 4 MG/1 ML INJ IV ONE (06:48)
[2021-05-09] MEDS ORDERED: ONDANSETRON 4 MG/2 ML INJ IV ONE (06:48)
[2021-05-09] MEDS ORDERED: SODIUM CHLORIDE 0.9% 1000 ML 1,000 ML IV ONE (06:48)
--- NOTE | 2021-05-09 06:58 | Emergency Department Report ---
ED Chest Pain HPI - General Chief Complaint: Chest Pain Stated Complaint: DASHA Time Seen by Provider: 05/09/21 06:18 Source: EMS Mode of arrival: Stretcher Limitations: No Limitations - History of Present Illness Initial Comments: This is a 55-year-old female nontoxic, well nourished in appearance, no acute signs of distress presents to the ED with c/o of midsternal chest pain and nausea x1 day. Stated has some intermittent shortness of breath but at this time denies any shortness of breath. Patient denies any radiation of pain. Patient describes pain as aching intermittently. Patient denies any upper respiratory symptoms. Patient denies any shortness of breath, hemoptysis, fever, chills, nausea, vomiting, headache, stiff neck, numbness, tingling, abdominal pain. Patient denies pleuritic chest pain. Patient denies any recent travels or long car rides. Patient denies any recent surgeries or any sick contacts. Patient denies any drug allergies. Past medical history includes obesity with BMI 89, diabetes and hypertension. Patient stated had a normal echocardiogram and stress test that was recently discharged several months ago from this facility. Patient stated since then does follow-up with her primary care doctor consistently. MD Complaint: chest pain -: days(s) Pain Location: substernal Pain Radiation: none Severity: mild Severity scale (0 -10): 3 Quality: sharp Consistency: intermittent Improves With: nothing Worsens With: nothing re: nausea. denies: vomting, diaphoresis, dyspnea, sense of impending doom Other Symptoms: denies: cough, fever, syncope, rash, acid taste in mouth, leg swelling, palpitations, burping Aspirin use within the Past 7 Days: (0) No - Related Data On Oral Contraceptives: No Previous Rx's Medication Instructions Recorded Last Taken Type Rosuvastatin Calcium [Crestor] 40 mg PO QHS #30 09/08/20 Unknown Rx metFORMIN [Glucophage] 1,000 mg PO BID #60 09/08/20 Unknown Rx amLODIPine 10 mg PO QDAY #30 tablet 09/09/20 Unknown Rx Allergies Allergy/AdvReac Type Severity Reaction Status Date / Time No Known Allergies Allergy Verified 09/08/20 01:10 Heart Score - HEART Score History: Slightly suspicious EKG: Normal Age: 45-65 Risk factors: > 3 risk factors or hx of atherosclerotic disease Troponin: < normal limit HEART Score: 3 - EKG Read Time Time EKG Completed: 04:29 EKG Read Time: 04:31 (signed and reviewed by Dr. Eric) - Critical Actions Critical Actions: 0-3 pts:0.9-1.7%risk of adverse cardiac event.Candidate for discharge ED Review of Systems ROS: Stated complaint: DASHA Other details as noted in HPI Comment: All other systems reviewed and negative Constitutional: denies: chills, fever Eyes: denies: eye pain, eye discharge, vision change ENT: denies: ear pain, throat pain Respiratory: shortness of breath. denies: cough, wheezing Cardiovascular: chest pain. denies: palpitations Endocrine: no symptoms reported Gastrointestinal: denies: abdominal pain, nausea, diarrhea Genitourinary: denies: urgency, dysuria, discharge Musculoskeletal: denies: back pain, joint swelling, arthralgia Skin: denies: rash, lesions Neurological: denies: headache, weakness, paresthesias Psychiatric: denies: anxiety, depression Hematological/Lymphatic: denies: easy bleeding, easy bruising ED Past Medical Hx - Past Medical History Hx Hypertension: Yes Hx Diabetes: Yes Hx Arthritis: Yes (osteoarthritis) - Surgical History Hx Cholecystectomy: Yes (2002) Additional Surgical History: right knee arthroscopy - Social History Smoking Status: Never Smoker - Medications Home Medications: Home Medications Medication Instructions Recorded Confirmed Last Taken Type Rosuvastatin Calcium [Crestor] 40 mg PO QHS #30 09/08/20 Unknown Rx metFORMIN [Glucophage] 1,000 mg PO BID #60 09/08/20 Unknown Rx amLODIPine 10 mg PO QDAY #30 tablet 09/09/20 Unknown Rx ED Physical Exam - General Limitations: No Limitations General appearance: alert, in no apparent distress - Head Head exam: Present: atraumatic, normocephalic - Eye Eye exam: Present: normal appearance - ENT ENT exam: Present: normal exam, normal orophraynx - Neck Neck exam: Present: normal inspection, full ROM. Absent: tenderness, meningismus, lymphadenopathy - Respiratory Respiratory exam: Present: normal lung sounds bilaterally. Absent: respiratory distress, wheezes, rales, rhonchi, stridor, chest wall tenderness, accessory muscle use, decreased breath sounds, prolonged expiratory - Cardiovascular Cardiovascular Exam: Present: regular rate, normal rhythm, normal heart sounds. Absent: bradycardia, tachycardia, irregular rhythm, systolic murmur, diastolic murmur, rubs, gallop - GI/Abdominal GI/Abdominal exam: Present: soft, normal bowel sounds. Absent: distended, tenderness, guarding, rebound, rigid - Extremities Exam Extremities exam: Present: normal inspection, full ROM, normal capillary refill. Absent: tenderness - Back Exam Back exam: Present: normal inspection, full ROM. Absent: tenderness, CVA tenderness (R), CVA tenderness (L), muscle spasm, paraspinal tenderness, vert ebral tenderness, rash noted - Neurological Exam Neurological exam: Present: alert, oriented X3, normal gait - Psychiatric Psychiatric exam: Present: normal affect, normal mood - Skin Skin exam: Present: warm, dry, intact, normal color. Absent: rash ED Course Vital Signs 05/09/21 02:14 Temperature 98.4 F Pulse Rate 84 Respiratory 18 Rate Blood Pressure 146/78 [Left] O2 Sat by Pulse 98 Oximetry - Reevaluation(s) Reevaluation #1: 05/09/21 06:59 Patient is speaking in full sentences with no signs of distress noted. PRANAY score - Pranay Score Age > 65: (0) No Aspirin use within the Past 7 Days: (0) No 3 or more CAD Risk Factors: (0) No 2 or more Angina events in past 24 hrs: (0) No Known CAD with more than 50% Stenosis: (0) No Elevated Cardiac Markers: (0) No ST Deviation Greater than 0.5mm: (0) No PRAANY Score: 0 ED Medical Decision Making - Lab Data Result diagrams: 05/09/21 06:29 05/09/21 06:29 Lab Results 05/09/21 05/09/21 05/09/21 Range/Units 06:29 06:29 06:29 WBC 7.6 (4.5-11.0) K/mm3 RBC 5.07 H (3.65-5.03) M/mm3 Hgb 12.4 (10.1-14.3) gm/dl Hct 40.3 (30.3-42.9) % MCV 80 (79-97) fl MCH 25 L (28-32) pg MCHC 31 (30-34) % RDW 14.7 (13.2-15.2) % Plt Count 168 (140-440) K/mm3 Lymph % (Auto) 40.3 H (13.4-35.0) % Cassia % (Auto) 6.1 (0.0-7.3) % Eos % (Auto) 1.5 (0.0-4.3) % Baso % (Auto) 0.3 (0.0-1.8) % Lymph # (Auto) 3.0 (1.2-5.4) K/mm3 Cassia # (Auto) 0.5 (0.0-0.8) K/mm3 Eos # (Auto) 0.1 (0.0-0.4) K/mm3 Baso # (Auto) 0.0 (0.0-0.1) K/mm3 Seg Neutrophils % 51.8 (40.0-70.0) % Seg Neutrophils # 3.9 (1.8-7.7) K/mm3 PT 12.7 (12.2-14.9) Sec. INR 0.86 L (0.87-1.13) APTT 27.1 (24.2-36.6) Sec. D-Dimer 215.75 (0-234) ng/mlDDU Sodium 139 (137-145) mmol/L Potassium 3.7 (3.6-5.0) mmol/L Chloride 102.5 (98-107) mmol/L Carbon Dioxide 23 (22-30) mmol/L Anion Gap 17 mmol/L BUN 14 (7-17) mg/dL Creatinine 0.5 L (0.6-1.2) mg/dL Estimated GFR > 60 ml/min BUN/Creatinine Ratio 28 % Glucose 154 H (65-100) mg/dL POC Glucose (70-105) mg/dL Calcium 8.6 (8.4-10.2) mg/dL Total Bilirubin 0.20 (0.1-1.2) mg/dL AST 13 (5-40) units/L ALT 19 (7-56) units/L Alkaline Phosphatase 109 (35-129) units/L Total Creatine Kinase 145 H (30-135) units/L CK-MB (CK-2) 1.8 (0.0-4.0) ng/mL CK-MB (CK-2) Rel Index 1.2 (0-4) Troponin T < 0.010 (0.00-0.029) ng/mL Total Protein 6.7 (6.3-8.2) g/dL Albumin 3.7 L (3.9-5) g/dL Albumin/Globulin Ratio 1.2 % 05/09/21 05/09/21 Range/Units 10:11 11:36 WBC (4.5-11.0) K/mm3 RBC (3.65-5.03) M/mm3 Hgb (10.1-14.3) gm/dl Hct (30.3-42.9) % MCV (79-97) fl MCH (28-32) pg MCHC (30-34) % RDW (13.2-15.2) % Plt Count (140-440) K/mm3 Lymph % (Auto) (13.4-35.0) % Cassia % (Auto) (0.0-7.3) % Eos % (Auto) (0.0-4.3) % Baso % (Auto) (0.0-1.8) % Lymph # (Auto) (1.2-5.4) K/mm3 Cassia # (Auto) (0.0-0.8) K/mm3 Eos # (Auto) (0.0-0.4) K/mm3 Baso # (Auto) (0.0-0.1) K/mm3 Seg Neutrophils % (40.0-70.0) % Seg Neutrophils # (1.8-7.7) K/mm3 PT (12.2-14.9) Sec. INR (0.87-1.13) APTT (24.2-36.6) Sec. D-Dimer (0-234) ng/mlDDU Sodium (137-145) mmol/L Potassium (3.6-5.0) mmol/L Chloride (98-107) mmol/L Carbon Dioxide (22-30) mmol/L Anion Gap mmol/L BUN (7-17) mg/dL Creatinine (0.6-1.2) mg/dL Estimated GFR ml/min BUN/Creatinine Ratio % Glucose (65-100) mg/dL POC Glucose 115 H (70-105) mg/dL Calcium (8.4-10.2) mg/dL Total Bilirubin (0.1-1.2) mg/dL AST (5-40) units/L ALT (7-56) units/L Alkaline Phosphatase (35-129) units/L Total Creatine Kinase (30-135) units/L CK-MB (CK-2) (0.0-4.0) ng/mL CK-MB (CK-2) Rel Index (0-4) Troponin T < 0.010 (0.00-0.029) ng/mL Total Protein (6.3-8.2) g/dL Albumin (3.9-5) g/dL Albumin/Globulin Ratio % - EKG Data 05/09/21 14:21 Normal sinus rhytm at [address] wave or T wave abnormalities. Reviewed and signed by MD. - Radiology Data [facility] [address] [place] [address] XRay Report Signed Patient: ISAAC RECINOS MR#: [id number] : 1965 Acct:[id number] Age/Sex: 55 / F ADM Date: 05/09/21 Loc: ED Attending Dr: Ordering Physician: BERNADINE ERIC MD Date of Service: 05/09/21 Procedure(s): XR chest 1V ap Accession Number(s): [id number] cc: BERNADINE ERIC MD Fluoro Time In M inutes: CHEST 1 VIEW 05/09/2021 6:06 AM INDICATION / CLINICAL INFORMATION: chest pain. COMPARISON: 09/07/2020 FINDINGS: SUPPORT DEVICES: None. HEART / MEDIASTINUM: No significant abnormality. LUNGS / PLEURA: No significant pulmonary or pleural abnormality. No pneumothorax. ADDITIONAL FINDINGS: No sig nificant additional findings. IMPRESSION: 1. No acute findings. Signer Name: Josr Rock DO Signed: 05/09/2021 6:21 AM Workstation Name: [id number] Transcribed By: NS Dictated By: JOSR ROCK DO Electronically Authenticated By: JOSR ROCK DO Signed Date/Time: 05/09/21620 DD/ 0 TD/TT: - Medical Decision Making This is a 55-year-old female that presents with chest pain nonspecific. Patient is stable and was examined by me. Negative d-dimmer. EKG normal sinus rhythm with no significant changes in ST. Chest xray dictated by the radiologist. PAtient is notified of the Xray report with no questions noted. Labs within normal limits. Negative troponin x2. Patient received treatment in the ED which stated symptoms are improving subsided. Patient was instructed to Follow-up with a primary care/mechatronics technician doctor in 2 days or if symptoms worsen and continue return to emergency room as soon as possible. At time of discharge, the patient does not seem toxic or ill in appearance. No acute signs of di stress noted. Patient agrees to discharge treatment plan of care. No further questions noted by the patient. Critical care attestation.: If time is entered above; I have spent that time in minutes in the direct care of this critically ill patient, excluding procedure time. ED Disposition Clinical Impression: Chest pain, unspecified Disposition: 01 HOME / SELF CARE / HOMELESS Is pt being admited?: No Does the pt Need Aspirin: No Condition: Stable Instructions: Nonspecific Chest Pain, Adult Additional Instructions: Follow-up with a mechatronics technician doctor in 2 days s or if symptoms worsen and continue return to emergency room as soon as possible. Referrals: SUSAN BEAL MD [Primary Care Provider] - 3-5 Days WASHINGTON BARRAGAN MD [Staff Physician] - 3-5 Days CAREY CHEN MD [Staff Physician] - 05/11/21 Time of Disposition: 14:16
[2021-05-09 07:30] LABS: Basophils % (Auto) 0.3 % (0.0-1.8); Eosinophils # (Auto) 0.1 K/mm3 (0.0-0.4); Eosinophils % (Auto) 1.5 % (0.0-4.3); Lymphocytes % (Auto) 40.3 % (13.4-35.0); Mean Corpuscular HGB Conc 31 % (30-34); Mean Corpuscular Volume 80 fl (79-97); Monocytes # (Auto) 0.5 K/mm3 (0.0-0.8); Monocytes % (Auto) 6.1 % (0.0-7.3); Platelet Count 168 K/mm3 (140-440); Red Blood Count 5.07 M/mm3 (3.65-5.03); Red Cell Distribution Width 14.7 % (13.2-15.2)
[2021-05-09 07:35] LABS: Hematocrit 40.3 % (30.3-42.9); Hemoglobin 12.4 gm/dl (10.1-14.3)
[2021-05-09 07:36] LABS: INR 0.86 (0.87-1.13)
[2021-05-09 07:37] LABS: Partial Thromboplastin Time 27.1 Sec. (24.2-36.6)
[2021-05-09 07:50] LABS: Creatine Kinase MB 1.8 ng/mL (0.0-4.0)
[2021-05-09 07:51] LABS: Alanine Aminotransferase 19 units/L (7-56); Albumin 3.7 g/dL (3.9-5); Blood Urea Nitrogen 14 mg/dL (7-17); Calcium 8.6 mg/dL (8.4-10.2); Hemolysis Index 14
[2021-05-09 07:55] LABS: BUN/Creatinine Ratio 28
--- NOTE | 2021-05-10 10:51 | Electrocardiograph Report ---
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
== END 2021-05-09 15:37 | disposition home or self-care (01) ==
LOC: ED 00:26
DX: R07.89 Other chest pain (principal); R11.0 Nausea; I10 Essential (primary) hypertension; E11.9 Type 2 diabetes mellitus without complications; M19.90 Unspecified osteoarthritis, unspecified site; Z79.899 Other long term (current) drug therapy
CPT/HCPCS: 36415; 71045; 80053; 82550; 82553; 82962; 84484; 85025; 85379; 85610; 85730; 93005; 96361; 96374; 96375; 99284; J2270; J2405; J7030; Q0162